=== PATIENT | male | born 1950 | race Caucasian/White ===

== ENCOUNTER 2016-07-31 10:50 | Emergency (ER) | payer BC, OTHER ==
[~2016-07-31] VITALS: Ht 188 cm; Wt 95.3 kg
[2016-07-31 10:51] VITALS: BP 131/78
[2016-07-31] MEDS ORDERED: ASPI81TA85 PO (11:12)
[2016-07-31] MEDS ORDERED: SIMV80TA PO (11:12)
[2016-07-31] MEDS ORDERED: LISI-538 PO (11:12)
[2016-07-31 12:31] LABS: BASO # 0.1 K/mm3 (0.0-0.2); BASO % 0.6 % (0.0-1.0); EOS # 0.3 K/mm3 (0.0-0.50); EOS % 2.9 % (0.0-3.0); LARGE UNSTAINED CELL # 0.2 K/mm3 (0.0-0.4); LYMPH # 3.2 K/mm3 (1.5-4.5); LYMPH % 32.8 % (24.0-44.0); MEAN CORPUSCULAR HEMOGLOBIN 32.2 pg (27.0-33.0); MEAN CORPUSCULAR HGB CONC 33.3 g/dl (32.0-36.5); MEAN CORPUSCULAR VOLUME 96.7 fl (80.0-96.0); MONO # 0.4 K/mm3 (0.0-0.8); MONO % 4.9 % (0.0-5.0); NEUTROPHILS # 5.1 K/mm3 (1.8-7.7); NEUTROPHILS % 56.8 % (36.0-66.0); PLATELET COUNT, AUTOMATED 208 k/mm3 (150-450); RED CELL DISTRIBUTION WIDTH 12.9 % (11.5-14.5)
[2016-07-31 12:45] LABS: INR 1.06
[2016-07-31 12:55] LABS: ALBUMIN 3.7 GM/DL (3.2-5.2); ALBUMIN/GLOBULIN RATIO 1.06 (1.00-1.93); ALKALINE PHOSPHATASE 66 U/L (45-117); ALT/SGPT 56 U/L (12-78); ANION GAP 5 MEQ/L (8-16); AST/SGOT 32 U/L (15-37); BILIRUBIN,DIRECT 0.1 MG/DL (0.0-0.2); BILIRUBIN,TOTAL 0.6 MG/DL (0.2-1.0); BLOOD UREA NITROGEN 11 MG/DL (7-18); CALCIUM LEVEL 8.8 MG/DL (8.8-10.2); CARBON DIOXIDE LEVEL 30 MEQ/L (21-32); CHLORIDE LEVEL 104 MEQ/L (98-107); CREATININE FOR GFR 0.68 MG/DL (0.70-1.30); GLOMERULAR FILTRATION RATE > 60.0 (>49); GLUCOSE, FASTING 93 MG/DL (80-110); SODIUM LEVEL 139 MEQ/L (136-145); TOTAL PROTEIN 7.2 GM/DL (6.4-8.2)
[2016-07-31] MEDS ORDERED: TYLETAB14 PO (14:51)
--- NOTE | 2016-07-31 15:30 | REP ---
LIMITED PELVIC ULTRASOUND, 07/31/2016: COMPARISON: CT abdomen and pelvis 08/10/2014. Clinical history: Evaluate for right-sided inguinal hernia. Both inguinal canals were studied. The left inguinal canal does show omental/peritoneal fat entering the canal during Valsalva maneuver and returning upward when the patient relaxes. There is no bowel herniation here. The right inguinal canal increases in size with Valsalva but no fat or bowel enters the canal. Technologist notes that there is a palpable area for this patient which corresponds to that right inguinal canal. IMPRESSION: 1. The left inguinal canal does show omental fat extending within it during Valsalva maneuver and returning with relaxation while the right inguinal canal shows some small amount of fat within it which does not increase with Valsalva maneuver and with no bowel herniation on the right side either. Signed by Jose Roberto MD 07/31/2016 08:35 P
== END 2016-07-31 15:06 | disposition home or self-care (01) ==
LOC: M ED 12:16
DX: K40.20 Bilateral inguinal hernia, without obstruction or gangrene, not specified as recurrent (principal); I10 Essential (primary) hypertension; E78.5 Hyperlipidemia, unspecified; Z87.442 Personal history of urinary calculi; Z79.899 Other long term (current) drug therapy; Z79.82 Long term (current) use of aspirin

== ENCOUNTER → 2016-08-18 | Outpatient (CLI) | payer BC, OTHER ==
[~2016-08-18] MED LIST: ASPI81TA85 PO; FISH100049 PO; HYDR-3713 PO; LISI-538 PO; SIMV80TA PO; TYLETAB14 PO
--- NOTE | 2016-08-18 17:14 | ECGEPIP ---
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
== END ==
LOC: M EKG 16:17
PROVIDERS: ATTEND Anesthesiology
DX: Z01.810 Encounter for preprocedural cardiovascular examination (principal); I10 Essential (primary) hypertension; R00.1 Bradycardia, unspecified; I44.0 Atrioventricular block, first degree

== ENCOUNTER → 2016-08-22 | Day surgery (SDC) | payer BC, OTHER ==
[~2016-08-22] VITALS: Ht 188 cm; Wt 97.5 kg
[~2016-08-22] MED LIST changes: +BUPIVACAINE/EPIN 0.25% 30 ML VIAL As Ordered ONE; +KETOROLAC 30 MG/ML VIAL (J1885) IV SCH; +KETOROLAC 60 MG/2 ML VIAL (J1885) As Ordered ONE; +LIDOCAINE 2% INJ 100 MG/5 ML SDV (FOR ANES.) As Ordered ONE; +LR 1,000 ML IV ONE; +LR 1,000 ML IV SCH; +MIDAZOLAM INJ 2 MG/2 ML VIAL (J2250) As Ordered ONE; +MORPHINE 2 MG/ML 1ML SYRINGE IV PRN; +NORCO, ANEXSIA 5/325MG TABLET (HYDROcodone/ACETAMINOPHEN) PO PRN; +ONDANSETRON 4MG/2ML VIAL (J2405) As Ordered ONE; +ONDANSETRON 4MG/2ML VIAL (J2405) IV PRN; +PROPOFOL 200 MG/20 ML VIAL As Ordered ONE; +ROCURONIUM BROMIDE 50 MG/5 ML VIAL As Ordered ONE; +fentaNYL 100 MCG/2 ML INJECTION (J3010) IV PRN; +fentaNYL 250 MCG/5 ML INJECTION (J3010) As Ordered ONE
[2016-08-22 15:45] VITALS: BP 150/80
== END ==
LOC: M SDC 08:59
PROVIDERS: ATTEND Surgery
DX: K40.31 Unilateral inguinal hernia, with obstruction, without gangrene, recurrent (principal); I10 Essential (primary) hypertension; E78.00 Pure hypercholesterolemia, unspecified; R06.83 Snoring; Z79.899 Other long term (current) drug therapy; Z79.82 Long term (current) use of aspirin; F17.210 Nicotine dependence, cigarettes, uncomplicated
CPT/HCPCS: 49650; C1781; J1885; J2250; J2405; J3010

== ENCOUNTER → 2017-03-20 | Outpatient (REF) | payer BC, OTHER ==
[~2017-03-20] MED LIST changes: -BUPIVACAINE/EPIN 0.25% 30 ML VIAL As Ordered ONE; -KETOROLAC 30 MG/ML VIAL (J1885) IV SCH; -KETOROLAC 60 MG/2 ML VIAL (J1885) As Ordered ONE; -LIDOCAINE 2% INJ 100 MG/5 ML SDV (FOR ANES.) As Ordered ONE; -LR 1,000 ML IV ONE; -LR 1,000 ML IV SCH; -MIDAZOLAM INJ 2 MG/2 ML VIAL (J2250) As Ordered ONE; -MORPHINE 2 MG/ML 1ML SYRINGE IV PRN; -NORCO, ANEXSIA 5/325MG TABLET (HYDROcodone/ACETAMINOPHEN) PO PRN; -ONDANSETRON 4MG/2ML VIAL (J2405) As Ordered ONE; -ONDANSETRON 4MG/2ML VIAL (J2405) IV PRN; -PROPOFOL 200 MG/20 ML VIAL As Ordered ONE; -ROCURONIUM BROMIDE 50 MG/5 ML VIAL As Ordered ONE; -fentaNYL 100 MCG/2 ML INJECTION (J3010) IV PRN; -fentaNYL 250 MCG/5 ML INJECTION (J3010) As Ordered ONE
== END ==
LOC: M LAB REF 16:34
PROVIDERS: ATTEND Physician Assistant
DX: L02.214 Cutaneous abscess of groin (principal)

== ENCOUNTER 2017-07-18 12:20 | Day surgery (SDC) | payer BC, OTHER ==
[2017-07-18] MEDS: NS 1,000 ML IV (12:30)
[2017-07-18] MEDS ORDERED: PROPOFOL 200 MG/20 ML VIAL As Ordered ×2 (13:24→13:42)
== END 2017-07-18 14:15 | disposition home or self-care (01) ==
LOC: M OPP 12:20
DX: Z12.11 Encounter for screening for malignant neoplasm of colon (principal); Z86.010 Personal history of colon polyps; D12.2 Benign neoplasm of ascending colon; D12.4 Benign neoplasm of descending colon; K64.0 First degree hemorrhoids; K57.30 Diverticulosis of large intestine without perforation or abscess without bleeding; I10 Essential (primary) hypertension; E78.5 Hyperlipidemia, unspecified; E66.9 Obesity, unspecified; L72.9 Follicular cyst of the skin and subcutaneous tissue, unspecified; F17.210 Nicotine dependence, cigarettes, uncomplicated; Z79.82 Long term (current) use of aspirin; Z79.899 Other long term (current) drug therapy
CPT/HCPCS: 45380

== ENCOUNTER 2018-08-29 05:46 | Emergency (ER) | payer MEDICARE, BC, OTHER ==
[~2018-08-29] VITALS: Ht 185.4 cm; Wt 101.4 kg
[~2018-08-29 05:46] MED LIST changes: +MULT1TAB10 PO; +OMEG100011 PO; +ROSU40TA3 PO; -SIMV80TA PO; +SIMV80TA13 PO
[2018-08-29] MEDS ORDERED: MORPHINE 10 MG/ML 1ML VIAL (J2270) IV ONE (06:15)
[2018-08-29] MEDS ORDERED: NS 500 ML IV ONE (06:15)
[2018-08-29] MEDS ORDERED: METOCLOPRAMIDE INJ 10MG/2ML VIAL (J2765) IV ONE (06:15)
[2018-08-29] MEDS ORDERED: GASTROGRAFIN SOLUTION 30ML (Q9963) As Ordered ONE (06:27)
[2018-08-29 06:35] LABS: BASO # 0.1 10^3/uL (0.0-0.2); BASO % 0.5 % (0.0-1.0); EOS # 0.3 10^3/uL (0.0-0.50); EOS % 2.7 % (0.0-3.0); HEMATOCRIT 43.6 % (42.0-52.0); HEMOGLOBIN 14.9 g/dl (13.5-17.5); LYMPH # 2.9 10^3/uL (1.5-4.5); LYMPH % 26.8 % (24.0-44.0); MEAN CORPUSCULAR HEMOGLOBIN 32.7 pg (27.0-33.0); MEAN CORPUSCULAR HGB CONC 34.2 g/dl (32.0-36.5); MEAN CORPUSCULAR VOLUME 95.8 fl (80.0-96.0); MONO # 0.9 10^3/uL (0.0-0.8); MONO % 7.8 % (0.0-5.0); NEUTROPHILS # 6.8 10^3/uL (1.8-7.7); NEUTROPHILS % 61.8 % (36.0-66.0); PLATELET COUNT, AUTOMATED 234 10^3/uL (150-450); RED BLOOD COUNT 4.55 10^6/uL (4.30-6.10)
[2018-08-29 06:42] LABS: INR 1.06; PROTHROMBIN TIME 13.9 SECONDS (12.1-14.4)
[2018-08-29 06:43] LABS: PARTIAL THROMBOPLASTIN TIME 31.6 SECONDS (25.4-37.6)
[2018-08-29 06:58] LABS: ALT/SGPT 43 U/L (12-78); BILIRUBIN,DIRECT 0.2 MG/DL (0.0-0.2); BILIRUBIN,TOTAL 0.7 MG/DL (0.2-1.0); BLOOD UREA NITROGEN 14 MG/DL (7-18); CALCIUM LEVEL 9.4 MG/DL (8.8-10.2); CARBON DIOXIDE LEVEL 28 MEQ/L (21-32); CHLORIDE LEVEL 106 MEQ/L (98-107); CREATININE FOR GFR 0.76 MG/DL (0.70-1.30); GLOMERULAR FILTRATION RATE > 60.0 (>49); GLUCOSE, FASTING 102 MG/DL (70-100); LIPASE 143 U/L (73-393); POTASSIUM SERUM 4.5 MEQ/L (3.5-5.1); SODIUM LEVEL 140 MEQ/L (136-145); TOTAL PROTEIN 7.2 GM/DL (6.4-8.2)
[2018-08-29] MEDS ORDERED: ISOVUE-370 76% 100ML VIAL (Q9967) As Ordered ONE (07:34)
--- NOTE | 2018-08-29 09:27 | REP ---
CT abdomen and pelvis with IV and oral contrast: History: Right-sided pain. CT contrast dose: 100 mL of intravenous Isovue 370. Comparison study August 10, 2014. 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 There is linear fibrosis in both lower lobes on lung window settings. This is somewhat more pronounced than on the 2015 study although not new. Vascular calcification is noted in the coronary arteries. No adrenal lesion is seen. The liver and the spleen are normal in size. No significant liver or spleen lesion is seen. There are mottled densities in the lumen of the gallbladder consistent with cholelithiasis. This is unchanged. No biliary ductal dilation is observed. No pancreatic abnormality is observed. The kidneys enhance symmetrically. There is no evidence of hydronephrosis or intrarenal nephrolithiasis. There is a tiny peripheral cyst at the lower pole of the left kidney unchanged from the 2015 study. No retroperitoneal mass or adenopathy is seen. There is a moderate amount of colonic stool and gas throughout the colon. No colonic obstructive lesion is appreciated. Gaseous distension is seen extending all the way to the rectum. There is low sigmoid colon diverticulosis without CT evidence of diverticulitis. No colonic mass lesion is observed. Small bowel loops are opacified with oral contrast and unremarkable. The small bowel loops are normal in caliber. The ileocecal valve is unremarkable. The appendix is not separately identified but there is no CT evidence to suggest appendicitis. Impression: Gaseous and stool distension throughout the colon without obstructive lesion. Question ileus pattern. Left colonic diverticulosis without evidence of diverticulitis. Cholelithiasis. Otherwise negative. Electronically Signed by Kal Petersen MD 08/29/2018 02:32 P
--- NOTE | 2018-08-29 09:47 | REP ---
RIGHT UPPER QUADRANT ULTRASOUND: Real-time sonographic evaluation of the right upper quadrant is performed. Gallstones fill the gallbladder lumen. I see no evidence of gallbladder wall thickening or pericholecystic fluid. There is no intrahepatic biliary dilatation. Common bile duct is upper limits of normal in diameter at 7 mm. No liver or pancreatic mass is seen. The pancreas is not optimally seen due to overlying bowel gas. Right kidney demonstrates no hydronephrosis with normal size 12.2 cm in length. Trace right pleural fluid is noted. IMPRESSION: Multiple gallstones fill the gallbladder lumen without evidence of gallbladder wall thickening or pericholecystic fluid. Common bile duct is upper limits of normal in diameter at 7 mm. Trace right pleural effusion incidentally noted. Electronically Signed by Leonel Phillips MD 08/29/2018 04:28 P
[2018-08-29] MEDS ORDERED: REGL10TA6 PO (11:57)
[2018-08-29 12:16] VITALS: BP 140/78
== END 2018-08-29 12:18 | disposition home or self-care (01) ==
LOC: M ED 05:46
DX: K80.50 Calculus of bile duct without cholangitis or cholecystitis without obstruction (principal); J90 Pleural effusion, not elsewhere classified; I10 Essential (primary) hypertension; E78.5 Hyperlipidemia, unspecified; F17.200 Nicotine dependence, unspecified, uncomplicated; Z79.899 Other long term (current) drug therapy; Z79.82 Long term (current) use of aspirin
CPT/HCPCS: 74177; 76705; 80048; 80076; 83690; 85025; 85610; 85730; 99284; Q9967

== ENCOUNTER → 2018-10-10 | Outpatient (CLI) | payer MEDICARE, BC, OTHER ==
[~2018-10-10] MED LIST changes: +MULTCAP PO; +REGL10TA6 PO; -ROSU40TA3 PO; +ROSU40TA4 PO; +VITA-144 PO
--- NOTE | 2018-10-10 12:04 | ECGEPIP ---
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
== END ==
LOC: M EKG 11:30
PROVIDERS: ATTEND Surgery
DX: Z01.810 Encounter for preprocedural cardiovascular examination (principal); I44.0 Atrioventricular block, first degree; I10 Essential (primary) hypertension; E78.00 Pure hypercholesterolemia, unspecified

== ENCOUNTER 2018-10-15 05:54 | Day surgery (SDC) | payer MEDICARE, BC, OTHER ==
[~2018-10-15] VITALS: Ht 185.4 cm; Wt 106.6 kg
[2018-10-15] MEDS ORDERED: BUPIVACAINE/EPIN 0.25% 30 ML VIAL As Ordered ONE (06:52)
[2018-10-15] MEDS ORDERED: LR 1,000 ML IV ONE (07:00)
[2018-10-15] MEDS ORDERED: ceFAZolin SOD 1 GM in D5W MINI-BAG PLUS 50 ML IV ONE (07:00)
[2018-10-15] MEDS ORDERED: propofoL 200 MG/20 ML VIAL As Ordered ONE (07:13)
[2018-10-15] MEDS ORDERED: ROCURONIUM BROMIDE 50 MG/5 ML VIAL As Ordered ONE ×2 (07:13→08:41)
[2018-10-15] MEDS ORDERED: fentaNYL 250 MCG/5 ML INJECTION (J3010) As Ordered ONE (07:13)
[2018-10-15] MEDS ORDERED: LIDOCAINE 2% INJ 100 MG/5 ML SDV (FOR ANES.) As Ordered ONE (07:13)
[2018-10-15] MEDS ORDERED: MIDAZOLAM INJ 2 MG/2 ML VIAL (J2250) As Ordered ONE (07:13)
[2018-10-15] MEDS ORDERED: ePHEDrine SULFATE 25 MG/5 ML(5MG/ML) SYRINGE As Ordered ONE (07:47)
[2018-10-15] MEDS ORDERED: KETOROLAC 60 MG/2 ML VIAL (J1885) As Ordered ONE ×2 (08:02→08:50)
[2018-10-15] MEDS ORDERED: ONDANSETRON 4MG/2ML VIAL (J2405) As Ordered ONE ×2 (08:02→08:50)
[2018-10-15] MEDS ORDERED: dexameTHASONE 4 MG/ML 1ML VIAL (J1100) As Ordered ONE (08:02)
[2018-10-15] MEDS ORDERED: NEOSTIGMINE 10 MG/10 ML VIAL (J2710) As Ordered ONE (08:03)
[2018-10-15] MEDS ORDERED: GLYCOPYRROLATE INJ 0.2 MG/ML 2 ML VIAL As Ordered ONE (08:03)
[2018-10-15] MEDS ORDERED: SUGAMMADEX SODIUM 500 MG/5 ML VIAL (BRIDION) As Ordered ONE (08:48)
[2018-10-15] MEDS ORDERED: BUPIVACAINE LIPOSOME/PF 1.3% 20ML VIAL (13.3MG/ML)(EXPAREL)(C9290 PER1MG) As Ordered ONE (08:51)
[2018-10-15] MEDS ORDERED: fentaNYL 100 MCG/2 ML INJECTION (J3010) As Ordered ONE (08:59)
[2018-10-15] MEDS ORDERED: LR 1,000 ML IV SCH ×2 (09:30→09:45)
[2018-10-15] MEDS ORDERED: NORCO, ANEXSIA 5/325MG TABLET (HYDROcodone/ACETAMINOPHEN) PO PRN (09:30)
--- NOTE | 2018-10-15 09:40 | RO ---
DATE OF PROCEDURE: 10/15/2018 PREOPERATIVE DIAGNOSIS: History of acute cholecystitis. POSTOPERATIVE DIAGNOSIS: History of acute cholecystitis. PROCEDURE: Laparoscopic cholecystectomy. SURGEON: Christopher Cisse Jr., MD ANESTHESIA: General endotracheal anesthesia. ESTIMATED BLOOD LOSS (EBL): Minimal. FLUIDS: Crystalloid. BRIEF PROCEDURE SUMMARY: The patient was brought to the operating room and was given general anesthesia. After adequate anesthesia and preoperative antibiotics were given, the patient was prepped and draped in usual sterile fashion. Next, a supraumbilical incision was made with skin knife. Blunt dissection was carried down to fascia and Veress needle placed into the abdominal cavity, insufflated to 15 mm of pressure. A dilating 10-mm trocar was placed at this time; and under direct visualization, an epigastric and two lateral trocars were placed. The patient had significant inflammation in the omentum up against the liver edge, which was taken down with cautery, and eventually the edge of the gallbladder could be appreciated. It was attempted to be grasped, but it was all firm and filled full of gallstones at the top third; and thus, I was able to place the grasper below the top third and used this to retract the gallbladder itself, taking down the peritoneum all the way down around the neck of the gallbladder. There was an extensive amount of chronic scarring in this area; and eventually, I was able to take down the peritoneum along lateral aspect and then on the medial aspect, the cystic artery was seen and after further dissection, dissecting all the way up to the cystic plate itself with taking some slow time given this dissection because of the intense scarring present. The critical view of safety was eventually obtained, and the cystic artery was clipped proximally and transected. The neck of the gallbladder was followed down toward the cystic duct itself. It was a relatively wide cystic duct, and I made sure at this point the medial and lateral that I did not see this being a double-lumen type of situation or pulling out the common bile duct to the side; and after evaluating this several times, clips were placed proximally and distally on the cystic duct. I did place this right on the gallbladder neck/cystic duct junction, and the clips on the gallbladder side were not wide enough to go across the neck of the gallbladder, so there was some minimal spillage of bile in this area; but in any case, the cystic duct was transected at this level, and the gallbladder was taken from the gallbladder bed. However, there was truly no easy plane to develop given the chronic fibrosis and the previous episode of cholecystitis, and the gallbladder was entered right where the firm area of stones were seen. There was some stone spillage which was a controlled layer and irrigated out later. In any case, the gallbladder was removed in its entirety. Good hemostasis was achieved, and the right upper quadrant was copiously irrigated until clear. An Endo Catch bag was used to remove the gallbladder, and the operative field was clean, dry with no bile leaks with the cystic artery and cystic duct clips in place. The stone in the dome of the gallbladder was so big that at this point taking it out through the umbilicus, I did need to increase the size of the umbilical incision. This was removed in its entirety without having to get into the bag, and the incision was closed with two figure-of-8 0 Vicryl sutures. Exparel was used to anesthetize the incision at the site, and all incisions were closed with 4-0 Vicryl. Steri-Strips and a dry sterile dressing was applied. The patient was awakened, extubated, brought to the recovery room awake, alert, and hemodynamically stable. Sponge and needle counts correct times two.
[2018-10-15] MEDS ORDERED: ONDANSETRON 4MG/2ML VIAL (J2405) IV PRN (09:45)
[2018-10-15] MEDS ORDERED: oxyCODONE 5MG TAB PO PRN (09:45)
[2018-10-15] MEDS ORDERED: fentaNYL 100 MCG/2 ML INJECTION (J3010) IV PRN (09:45)
[2018-10-15 10:40] VITALS: BP 125/83
== END 2018-10-15 11:35 | disposition home or self-care (01) ==
LOC: M SDC 05:54
PROVIDERS: ATTEND Surgery
DX: K80.10 Calculus of gallbladder with chronic cholecystitis without obstruction (principal); I10 Essential (primary) hypertension; E78.5 Hyperlipidemia, unspecified; Z79.82 Long term (current) use of aspirin; Z79.899 Other long term (current) drug therapy; F17.210 Nicotine dependence, cigarettes, uncomplicated
CPT/HCPCS: 47562; 88304; C9290; J0690; J1100; J1885; J2250; J2405; J3010

== ENCOUNTER → 2021-04-09 | Outpatient (REF) | payer MEDICARE, BC, OTHER ==
[~2021-04-09] MED LIST changes: -ASPI81TA85 PO; +ASPI81TA86 PO; -LISI-538 PO; +LISI20TA33 PO
== END ==
LOC: M WUC 18:47
PROVIDERS: ATTEND Physician Assistant Medical
DX: J06.9 Acute upper respiratory infection, unspecified (principal); Z20.828 Contact with and (suspected) exposure to other viral communicable diseases

== ENCOUNTER 2023-01-29 12:18 | Day surgery (SDC) | payer MEDICARE, BC, OTHER ==
[~2023-01-29] VITALS: Ht 188 cm; Wt 116.3 kg
[~2023-01-29 12:18] MED LIST changes: +ECOT81TA5 PO; +EZET10TA21 PO; +NS 1,000 ML IV ONE; +THERTAB52 PO; +VITA100093 PO
[2023-01-29] MEDS ORDERED: propofoL 200 MG/20 ML VIAL As Ordered ONE ×2 (14:14→14:15)
[2023-01-29] MEDS ORDERED: LIDOCAINE 2% 100MG/5ML SDV (FOR ANES.) As Ordered ONE (14:14)
[2023-01-29 15:20] VITALS: TEMP 97.2
[2023-01-29 15:30] VITALS: BP 124/74; O2SAT 98
== END 2023-01-29 15:52 | disposition home or self-care (01) ==
LOC: M OPP 12:18
PROVIDERS: ATTEND Internal Medicine Gastroenterology
DX: Z12.11 Encounter for screening for malignant neoplasm of colon (principal); Z86.010 Personal history of colon polyps; D12.2 Benign neoplasm of ascending colon; K64.0 First degree hemorrhoids; K57.30 Diverticulosis of large intestine without perforation or abscess without bleeding; Z79.02 Long term (current) use of antithrombotics/antiplatelets; Z79.82 Long term (current) use of aspirin; Z79.899 Other long term (current) drug therapy